=== PATIENT | female | born 1985 | race Caucasian/White ===

== ENCOUNTER → 2016-10-04 | Outpatient (CLI) | payer OTHER ==
--- NOTE | 2016-10-04 14:25 | RADIOLOGY REPORT (SQ) ---
EXAM DESCRIPTION: FOOT LEFT COMPLETE COMPLETED DATE/TIME: 10/04/2016 2:02 pm REASON FOR STUDY: HALLUX VALGUS (ACQUIRED), LEFT FOOT M20.12 HALLUX VALGUS (ACQUIRED), LEFT FOOT COMPARISON: None. NUMBER OF VIEWS: Three views. TECHNIQUE: AP, lateral and oblique radiographic images acquired of the left foot. LIMITATIONS: None. FINDINGS: MINERALIZATION: Normal. BONES: No acute abnormality. There is mild bony overgrowth involving the head of the 1st metatarsal. JOINTS: No effusions. SOFT TISSUES: No soft tissue swelling. No foreign body. OTHER: No other significant finding. IMPRESSION: Small bunion. TECHNICAL DOCUMENTATION: JOB ID: [id number] [employer]- All Rights Reserved
== END ==
LOC: OD 13:49
PROVIDERS: ATTEND Nurse Practitioner
DX: M20.12 Hallux valgus (acquired), left foot (principal)

== ENCOUNTER 2017-04-19 07:39 | Day surgery (SDC) | payer MEDICAID, OTHER ==
[2017-04-18 08:47] LABS: ABSOLUTE EOSINOPHILS # (AUTO) 0.1 10^3/uL (0.0-0.6); ABSOLUTE LYMPHOCYTES (AUTO) 2.3 10^3/uL (0.5-4.7); ABSOLUTE MONOCYTES (AUTO) 0.5 10^3/uL (0.1-1.4); ABSOLUTE NEUT (AUTO) 2.5 10^3/uL (1.7-8.2); BASOPHILS % (AUTO) 0.8 % (0-2); EOSINOPHILS % (AUTO) 2.4 % (0-6); HEMATOCRIT 38.2 % (36.0-47.0); HEMOGLOBIN 13.1 g/dL (12.0-15.5); HGB HCT DIFFERENCE 1.1; MEAN CORPUSCULAR HEMOGLOBIN 28.5 pg (27.0-33.4); MEAN CORPUSCULAR HGB CONC 34.2 g/dL (32.0-36.0); MEAN CORPUSCULAR VOLUME 83 fl (80-97); MONOCYTES % (AUTO) 8.5 % (3-13); RED BLOOD COUNT 4.59 10^6/uL (3.72-5.28); RED CELL DISTRIBUTION WIDTH 13.4 % (11.5-14.0); SEGMENTED NEUTROPHILS % (AUTO) 46.3 % (42-78); WHITE BLOOD COUNT 5.5 10^3/uL (4.0-10.5)
[2017-04-18 08:55] LABS: APPEARANCE,URINE CLEAR; BILIRUBIN,URINE NEGATIVE (NEGATIVE); GLUCOSE, URINE NEGATIVE (NEGATIVE); KETONES,URINE NEGATIVE (NEGATIVE); LEUKOCYTE ESTERASE,URINE NEGATIVE (NEGATIVE); NITRITE,URINE NEGATIVE (NEGATIVE); PROTEIN,URINE NEGATIVE (NEGATIVE); URINE SPECIFIC GRAVITY 1.004; UROBILINOGEN,URINE NEGATIVE mg/dL (<2.0)
[~2017-04-19 07:39] MED LIST: BUPIVACAINE HCL 0.5 % INJ/PF 30 ML SDV ONE; CEFAZOLIN 1 GM/D5W RTU 1 GM/50 ML RTUPB IV PRN; FENTANYL CITRATE INJ/PF 100 MCG/2 ML AMPUL ONE; LIDOCAINE 2% INJ (20 MG/ML) 20 ML MDV ONE; LIDOCAINE 2% INJ-PF (20 MG/ML) 10 ML AMPUL ONE; MIDAZOLAM 2 MG/2 ML INJ ONE; ONDANSETRON HCL INJ/PF 4 MG/2 ML SDV ONE; PROPOFOL INJ 200 MG/20 ML VIAL IV ONE; RINGERS SOLUTION,LACTATED 1,000 ML IV PRN
--- NOTE | 2017-04-19 11:36 | [facility] OPERATIVE REPORT E ---
[facility] Operative Report NAME: MORRO SALAZAR AGE: 31Y DATE OF SURGERY: 04/19/2017 ROOM: PREOPERATIVE DIAGNOSIS: Hallux abductovalgus deformity, left foot. POSTOPERATIVE DIAGNOSIS: Hallux abductovalgus deformity, left foot. PROCEDURE PERFORMED: Osteotomy first metatarsal with external fixation, left foot. SURGEON: LEO BUTLER D.P.M. FINDINGS: Intraoperative findings indicated hypertrophy of the medial eminence of the head of the first metatarsal, mild deviation of the articular facet of the head of the first metatarsal in a valgus direction. The articular cartilage over the head of the first metatarsal and the base of the proximal phalanx were relatively normal. Intraoperative findings were confirmed clinically and radiographically. PROCEDURE: With the patient laying in the dorsal recumbent position, left foot and leg were prepped and draped in the usual standard sterile orthopedic manner after the local anesthesia was administered, which was a total ankle block with IV sedation. After the anesthetic effect was accomplished, the left leg was elevated for approximately 2 minutes of time, and the left ankle pneumatic tourniquet was inflated up to 250 mmHg after the blood was exsanguinated from the left foot. At this point, the left leg was brought to the level of the table. Attention was directed right over the first metatarsophalangeal joint. The curvilinear incision was placed right over this area. The initial incision was deep and the superficial and deep subcutaneous tissues were dissected via blunt and sharp dissection. This dissection was carried until the capsular structures were brought into the surgical field. All bleeders were ligated by this time. All vital structures were identified and protected from surgical trauma. Next, the capsulotomy was performed, which is L-inverted capsulotomy. The long arm was placed medial and adjacent to extensor hallucis longus tendon. The short arm was placed right over the joint and it ran in medial inferior direction. Capsule and periosteal structures were dissected off bone and the first metatarsal head was brought into the surgical field. The hypertrophic portion of the head of the first metatarsal was resected and the head was remodeled to a more normal anatomical configuration. At this point, the joint was evaluated and decision was made of the type of osteotomy to be performed, which was an Aguila osteotomy executed from medial to lateral direction with angulation of the arms of the chevron cut about 45 degrees. The osteotomy was completed. The head of the first metatarsal was shifted lateralward then compacted on the distal shaft of the first metatarsal. The compaction allowed realignment of the articular facet of the head of the first metatarsal. Next, the osteotomy was externally fixated utilizing 0.062 K-wire. The wire was from medial proximal to lateral distal direction. It crossed the osteotomy and compacted it. Precaution was taken not to have the wire protruding into the joint. After the successful fixation of the osteotomy, intraoperative x-rays were obtained, which were extremely satisfactory. Next, the protruding wedge of bone on the very medial distal aspect of the shaft of the first metatarsal was resected. At this point, finally variation was conducted. Correction was extremely satisfactory and the left ankle pneumatic tourniquet was deflated at this time. Circulation to the left foot returned to normal as the normal digital color and temperature became apparent. Next, the surgical area was irrigated with copious amounts of sterile saline solution. The capsule structures were closed with 2-0 Vicryl using continuous Interlock stitch. Subcutaneous tissues from deep to superficial were closed with 3-0 Vicryl. The skin edges were already positioned and coapted with utilization of 4-0 nylon continuous Interlock stitch. A Betadine compression dressing was applied around the surgical area, which was followed with an SOFIA bandage and a surgical shoe. This patient tolerated the procedures well and left the operating room with stable vital signs and in good condition. Patient was taken to the recovery room alert, conscious, and oriented. The immediate postoperative recovery was also very uneventful. The patient was sent home with instructions for postoperative care at home. Patient was instructed how to take her pain medicine and the antibiotics. Patient was also given exercises in order to prevent blood clot formation. A followup appointment was set in my office in 72 hours. DICTATING PHYSICIAN: LEO BUTLER D.P.M. [id number] PHY#: [id number] ID: [id number] JOB#: [id number] ACCT: [id number] cc:LEO BUTLER D.P.M. >
--- NOTE | 2017-04-19 13:17 | RADIOLOGY REPORT (SQ) ---
EXAM DESCRIPTION: FOOT LEFT 2 VIEWS; NO CHG FLUORO COMPLETED DATE/TIME: 04/19/2017 10:44 am REASON FOR STUDY: LT FOOT 1ST METATAR MARISOL OSTEOTOMY M20.12 HALLUX VALGUS (ACQUIRED), LEFT FOOT COMPARISON: None. FLUOROSCOPY TIME: 1 second AP and lateral forefoot C-arm digital images saved to PACS. TECHNIQUE: Intra-operative images acquired during surgical procedure to evaluate progress. NUMBER OF IMAGES: 2 digital images LIMITATIONS: None. FINDINGS: Intra procedural imaging and fluoro during left bunion corrective surgery with left distal 1st metatarsal osteotomy and K-wire. Please see the operative report for further details IMPRESSION: Intra procedural imaging and fluoro COMMENT: Quality ID [id number]: Final reports for procedures using fluoroscopy that document radiation exp osure indices, or exposure time and number of fluorographic images (if radiation exposure indices are not available) Please consult full operative report of the attending physician for description of the procedure. TECHNICAL DOCUMENTATION: JOB ID: [id number] [employer]- All Rights Reserved
== END 2017-04-19 11:22 | disposition home or self-care (01) ==
LOC: SC 07:39
PROVIDERS: ATTEND Podiatrist Foot & Ankle Surgery
PROC: 0QBP0ZZ Excision of Left Metatarsal, Open Approach (ICD-10-PCS; principal; 2017-04-19 08:00)
DX: M20.12 Hallux valgus (acquired), left foot (principal); G43.909 Migraine, unspecified, not intractable, without status migrainosus; Z79.899 Other long term (current) drug therapy
CPT/HCPCS: 36415; 85025; 81001; 73620; 28306; C1713; J2250; J3490 ×2; J0690; J3010; J2405; J2704; 01480

== ENCOUNTER → 2018-09-17 | Outpatient (CLI) | payer MEDICAID ==
[2018-09-17 11:52] LABS: T.VAGINALIS (WET MOUNT) NO TRICHOMONAS SEEN
[2018-09-17 11:53] LABS: BACTERIA (WET MOUNT) 4+ BACTERIA SEEN; EPITHELIALS (WET MOUNT) 3+ EPITHELIALS SEEN; WBCS (WET MOUNT) 3+ WBCS SEEN; YEAST (WET MOUNT) BUDDING YEAST SEEN
[2018-09-17 13:22] LABS: CHLAM PCR NOT DETECTED (NOT DETECT); GON PCR NOT DETECTED (NOT DETECT)
== END ==
LOC: LAB 11:47
PROVIDERS: ATTEND Nurse Practitioner Acute Care
DX: N89.8 Other specified noninflammatory disorders of vagina (principal); R30.0 Dysuria
CPT/HCPCS: 87086; 87210; 87491; 87591

== ENCOUNTER → 2019-08-12 | Outpatient (CLI) | payer MEDICAID ==
--- NOTE | 2019-08-12 17:33 | RADIOLOGY REPORT (SQ) ---
EXAM DESCRIPTION: C SP 4 OR 5 VIEWS IMAGES COMPLETED DATE/TIME: 08/12/2019 5:11 pm REASON FOR STUDY: NECK PAIN M54.2 CERVICALGIA COMPARISON: None. NUMBER OF VIEWS: Three views. TECHNIQUE: AP, lateral, obliques and odontoid radiographic images acquired of the cervical spine. LIMITATIONS: None. FINDINGS: MINERALIZATION: Normal. ALIGNMENT: Anatomic. VERTEBRAE: Vertebral bodies of normal height. DISCS: No significant osteophytes or sclerosis. Disc height maintained. FORAMINA: No osteophytes or foraminal narrowing. LATERAL AND POSTERIOR ELEMENTS: Facets, lateral masses and spinous processes without significant find ings. HARDWARE: None in the spine. SOFT TISSUES: No masses or calcifications. Lung apices clear. OTHER: No other significant finding. IMPRESSION: 1. NO SIGNIFICANT RADIOGRAPHIC FINDING IN THE CERVICAL SPINE. TECHNICAL DOCUMENTATION: JOB ID: [id number] 2010 [employer]- All Rights Reserved Reading location - IP/workstation name: [email or web address]
== END ==
LOC: OD 16:44
PROVIDERS: ATTEND Nurse Practitioner Family
DX: M54.2 Cervicalgia (principal)
CPT/HCPCS: 72050

== ENCOUNTER → 2019-12-16 | Outpatient (CLI) | payer MEDICAID ==
--- NOTE | 2019-12-16 12:23 | RADIOLOGY REPORT (SQ) ---
EXAM DESCRIPTION: LUMBAR SPINE COMPLETE IMAGES COMPLETED DATE/TIME: 12/16/2019 11:28 am REASON FOR STUDY: LBP M54.5 LOW BACK PAIN COMPARISON: None. NUMBER OF VIEWS: Five views including obliques. TECHNIQUE: AP, lateral, oblique, and sacral radiographic images acquired of the lumbar spine. LIMITATIONS: None. FINDINGS: MINERALIZATION: Normal. SEGMENTATION: Normal. No transitional anatomy. ALIGNMENT: Normal. VERTEBRAE: Maintained height. No fracture or worrisome bone lesion. DISCS: Preserved height. No significant osteophytes or end plate irregularity. POSTERIOR ELEMENTS: Pedicles and facets are intact. No pars defect or posterior arch defects. HARDWARE: None in the spine. PARASPINAL SOFT TISSUES: Normal. PELVIS: Intact as visualized. No fractures or worrisome bone lesions. SI joints intact. OTHER: No other significant finding. IMPRESSION: NORMAL 5 VIEW LUMBAR SPINE. TECHNICAL DOCUMENTATION: JOB ID: [id number] 2010 [employer]- All Rights Reserved Reading location - IP/workstation name: [email or web address]
== END ==
LOC: OD 11:12
PROVIDERS: ATTEND Nurse Practitioner Family
DX: M54.5 Low back pain (principal)
CPT/HCPCS: 72110